=== PATIENT | female | born 1965 | race African-American/Black ===

== ENCOUNTER 2018-02-07 15:10 | Emergency (ER) | payer SELFPAY ==
[2018-02-07 15:11] VITALS: BP 182/98; PULSE 100; RESP 18; TEMP 36.5; O2SAT 98; BMI 36.8
[2018-02-07 16:45] VITALS: BP 188/95; PULSE 95; RESP 20; O2SAT 99
--- NOTE | 2018-02-07 16:51 | EKG12_ITS ---
Test Reason : HTN Blood Pressure : / mmHG Vent. Rate : 093 BPM Atrial Rate : 093 BPM P-R Int : 144 ms QRS Dur : 076 ms QT Int : 378 ms P-R-T Axes : 053 019 092 degrees QTc Int : 469 ms Normal sinus rhythm Normal ECG Confirmed by GERALD SALES, LUCY ([id number]), development editor ANANDA ROBLES ([id number] on 02/10/2018 1:27:37 PM Referred By: ANGELA Confirmed By:LUCY DUARTE MD
--- NOTE | 2018-02-07 16:54 | ED.VISSUMM ---
- ER Visit Summary Date of Service: 02/07/18 Chief Complaint: Blood pressure and blood sugar check History of Present Illness: The patient is a 52 F who is here because she is out of her blood pressure and diabetes medication. The patient was recently admitted in [place], according to her because of leg swelling. She was started on blood pressure medicine and she takes metformin twice a day. She is out of her medication. She was brought to the ED by her family. They were concerned that she is not taking care of herself. According to them, she has some underlying psychiatric history. The patient says she does not have an official psychiatric diagnosis. She does not take medication for psychiatric illness. She denies any suicidal or homicidal thoughts. She does say that she is able to take care of herself, but is just out of medications. She denies chest pain, shortness of breath, headache, neurologic symptoms, back pain, abdominal pain, nausea, vomiting, diarrhea, fevers, or rash. Physical Examination: Blood pressure 182/98. Heart rate 100. Otherwise afebrile vitals unremarkable. The patient is sitting comfortably. Alert and oriented. No acute distress. Normal affect. Normal mood. Heart regular. Lungs clear. Abdomen soft. No focal or lateralizing neurologic abnormalities grossly. Test Results: We will check basic labs and an EKG. Emergency Department Course and Treatment: She was treated with fluids and lisinopril while awaiting results. Patient also received clonidine. Her repeat blood pressure was 134/75. Workup was all fairly unremarkable. Glucose was 197. I spoke with the patient's family. She is having bizarre thoughts and delusions. The patient was evaluated by crisis. She spoke with a counselor and was having even more delusions and abnormal thoughts. It is clear that she is psychotic. She is not taking her meds and not taking care of herself. Patient was pink slipped and will be admitted for further psychiatric care. Treatment Plan: As above Disposition: Transfer pending crisis evaluation Impression: 1. Psychosis 2. Hypertension This note was generated with [employer] software. It may contain incorrect words, spelling, and punctuation that were not noted in review of the chart prior to signing ED Disposition - Plan for ED Patient: Chief Complaint: Hypertension Referrals: NOT,DEFINED [NON-STAFF] -
--- NOTE | 2018-02-07 17:09 | NURSING ---
NO OLD EKGS
[2018-02-07] MEDS: Lisinopril 5 MG Tablet PO (17:49)
[2018-02-07] MEDS: 0.9% Normal Saline 1,000 ML 1000 ML IV (18:01)
[2018-02-07 18:02] VITALS: BP 191/108; PULSE 90; RESP 18; O2SAT 100
[2018-02-07 18:19] LABS: AST(SGOT) 14 U/L (15-37); Alanine Aminotransfer ALT/SGPT 19 U/L (13-56); Albumin, Serum 3.4 g/dL (3.2-5.0); Alkaline Phosphatase 102 U/L (45-117); Anion Gap 6 (5-15); BUN 7 mg/dL (7-18); BUN/Creat Ratio 8.5 RATIO (10-20); Bilirubin, Direct 0.05 mg/dL (0.00-0.30); Calcium,Total 8.8 mg/dL (8.5-10.1); Chloride 103 mmol/L (98-107); Creatinine, Serum 0.82 mg/dL (0.55-1.02); EST Glomerular Filtration Rate 77 mL/min (>60); Est Glom Filt Rate - Afr Amer 93 mL/min (>60); Estimated Creatinine Clearance 60.56 ml/min; Globulin 4.3 g/dL (2.2-4.2); Glucose 197 mg/dL (74-106); Potassium 3.7 mmol/L (3.5-5.1); Protein, Total 7.7 g/dL (6.4-8.2); Sodium Level 138 mmol/L (136-145)
[2018-02-07 18:21] LABS: Bacteria 0 SEEN /hpf (None Seen); Mucous, Urine 0 SEEN /hpf (<or=2+); White Blood Cells 0 SEEN /hpf (0-5)
[2018-02-07 18:28] LABS: Color, Urine Yellow (Yellow); Glucose, Dipstick 1000 mg/dl (Normal); Ketone-Dipstick Negative (Negative); Leukocyte Esterase-Dipstick Negative /ul (Negative); Nitrite-Dipstick Negative (Negative); Occult Blood-Urine 10 /ul (Negative); Protein-Dipstick 15 mg/dl (Negative); Specific Gravity, Urine 1.015 (1.002-1.030); Urine Bilirubin Dipstick Negative (Negative); Urine Clarity Sl. Cloudy (Clear); Urine Urobilinogen Normal (Normal)
[2018-02-07 18:32] LABS: Basophil# 0.02 X10^3/uL; Basophil% 0.3 % (0-1); Eosinophil# 0.17 X10^3/uL; Eosinophils% 2.8 % (0-5); Hematocrit 38.3 % (37-47); Hemoglobin 11.8 g/dl (12.0-15.0); Lymphocyte % 39.6 % (19-41); Mean Corp Hgb Conc 30.8 g/gl (32-36); Mean Corpuscular Hgb 25.9 pg (27.0-32.0); Mean Corpuscular Volume 84.2 fL (81-99); Mean Platelet Vol. 11.6 fl (6.2-12.0); Monocyte# 0.46 X10^3/uL; Monocyte% 7.6 % (0-10); Neutrophil % 49.5 % (47-70); Platelet Count 251 K/mm3 (150-450); RBC Distribution Width CV 13.7 % (11.6-14.6); RBC Distribution Width SD 41.4 fl (35.1-43.9); Red Blood Count 4.55 M/mm3 (4.2-5.4); White Blood Count 6.1 K/mm3 (4.4-11.0)
--- NOTE | 2018-02-07 18:32 | ED.RN ---
[facility] CALLED & STATED THEY WOULD BE HERE IN 15/20 MINUTES.
[2018-02-07 18:34] LABS: POSITIVE COUNT NO; POSITIVE DIFFERENTIAL NO; POSITIVE MORPHOLOGY NO
[2018-02-07 18:40] LABS: Amphetamine Urine VISTA NEGATIVE (<1000 ng/mL); Barbiturate Urine VISTA NEGATIVE (< 200 ng/mL); Benzodiazepine Urine VISTA NEGATIVE (< 200 ng/mL); Cocaine Urine VISTA NEGATIVE (< 300 ng/mL); Ecstacy Urine VISTA NEGATIVE (< 500 ng/mL); Methadone Urine VISTA NEGATIVE (< 300 ng/mL); PCP Urine VISTA NEGATIVE (< 25 ng/mL); THC Urine VISTA NEGATIVE (< 50 ng/mL); Vista UDS pH Range 6
[2018-02-07 18:42] LABS: Red Blood Cells-Urine 0-5 SEEN /hpf (0-5); Squamous Epithelial Cells - UA 0-5 SEEN /hpf (5-10)
--- NOTE | 2018-02-07 19:04 | ED.RN ---
LEONILA FROM [facility] IS HERE TO SEE PT.
[2018-02-07] MEDS: cloNIDine HCl 0.1 MG Tablet 0.2 MG PO (19:06)
[2018-02-07 19:16] VITALS: BP 211/103; PULSE 95; RESP 17
[2018-02-07 20:46] VITALS: BP 134/75; PULSE 88; RESP 24; O2SAT 96
[2018-02-07 22:51] VITALS: BP 115/70; PULSE 81; RESP 22; O2SAT 94
[2018-02-08] VITALS (9 sets, daily range): BP systolic 137–173; BP diastolic 80–100; PULSE 76–88; RESP 16–18; O2SAT 97–98
--- NOTE | 2018-02-08 06:29 | NURSING ---
SPOKE WITH MYRA FROM [facility]. SHE STATED SHE NEVER RC'D ANY OF OUR FAXES WITH [facility]. SHE STATES HER FACILITIES FAX MACHINES ARE DOWN. RECENT SET OF [facility] RELAYED TO MYRA AND STATES SHE WILL PASS THAT ON TO HER [employer]. STILL WAITING FOR ACCEPTANCE AT THIS POINT
--- NOTE | 2018-02-08 07:57 | ED.RN ---
pt requests mot to take morning meds until around 9-10
[2018-02-08] MEDS: Metoprolol(XL)Succ 25 MG Tablet PO (08:24)
[2018-02-08] MEDS: Lisinopril 5 MG Tablet PO (08:25)
--- NOTE | 2018-02-08 09:44 | NURSING ---
CALLED [facility]. PATIENT IS ACCEPTED. ACCEPTING DR MARCELO RILEY NURSE TO NURSE IS [phone]
--- NOTE | 2018-02-08 10:56 | NURSING ---
CALLED [facility] FOR TRANSPORT
== END 2018-02-08 11:29 ==
PROVIDERS: Emergency Provider Emergency Medicine
DX: F29 Unspecified psychosis not due to a substance or known physiological condition (principal); I10 Essential (primary) hypertension; E11.9 Type 2 diabetes mellitus without complications; Z79.84 Long term (current) use of oral hypoglycemic drugs; Z79.899 Other long term (current) drug therapy
CPT/HCPCS: 80048; 80076; 80307; 80320; 81001; 84484; 85025; 93005; 96360; 96361; 99284; J7030; A4216; G0480